=== PATIENT | female | born 1995 | race Caucasian/White ===

== ENCOUNTER 2024-12-09 09:01 | Emergency (ER) | payer OTHER ==
[2024-12-09 09:26] VITALS: BP 119/73; PULSE 91; RESP 16; TEMP 98.1; BMI 27.3
== END 2024-12-09 10:22 | disposition home or self-care (01) ==
LOC: JER 09:01 → JERFT 09:01
DX: Z00.00 Encounter for general adult medical examination without abnormal findings (principal)
CPT/HCPCS: 99282-25